=== PATIENT | female | born 1985 | race Two or more races ===

== ENCOUNTER 2025-05-29 07:55 | Day surgery (SDC) | payer OTHER ==
[2025-05-22 12:07] VITALS: BP 125/72
[~2025-05-29] VITALS: Ht 154.9 cm; Wt 83.9 kg
== END 2025-05-29 15:55 | disposition home or self-care (01) ==
LOC: CIR.AMB 07:55
PROVIDERS: ATTEND Colon & Rectal Surgery
DX: K64.1 Second degree hemorrhoids (principal); K64.4 Residual hemorrhoidal skin tags